=== PATIENT | female | born 1945 | race Caucasian/White ===

== ENCOUNTER 2018-06-03 12:19 | Outpatient (CLI) | payer SELFPAY | END 2018-06-03 12:21 | LOC: LAB 12:19 | PROVIDERS: ATTEND Internal Medicine Interventional Cardiology | DX: I48.91 Unspecified atrial fibrillation (principal); Z95.2 Presence of prosthetic heart valve | CPT/HCPCS: 36415; 85610 ==

== ENCOUNTER 2018-06-08 15:41 | Outpatient (CLI) | payer SELFPAY | END 2018-06-08 15:43 | LOC: LAB 15:41 | PROVIDERS: ATTEND Internal Medicine Interventional Cardiology | DX: I48.91 Unspecified atrial fibrillation (principal); Z95.2 Presence of prosthetic heart valve | CPT/HCPCS: 36415; 85610 ==